=== PATIENT | male | born 1965 | race Caucasian/White ===

== ENCOUNTER → 2018-12-16 | Outpatient (CLI) | payer OTHER ==
[~2018-12-16] MED LIST: ATOR40TA75 PO; BENI1TAB3 PO; MELO15TA28 PO; MIRA0.254 PO; OMEP40CA2 PO; PROC60TA PO; SYNJ1TAB PO; TRES1INJ2 SC; VICT18IN SC; VITA200028 PO; ZOLO100T PO
[2018-12-16 12:00] LABS: HEMATOCRIT 46.3 % (42.0-52.0); HEMOGLOBIN 15.1 g/dl (13.5-17.5); MEAN CORPUSCULAR HEMOGLOBIN 30.1 pg (27.0-33.0); MEAN CORPUSCULAR HGB CONC 32.6 g/dl (32.0-36.5); MEAN CORPUSCULAR VOLUME 92.4 fl (80.0-96.0); PLATELET COUNT, AUTOMATED 295 10^3/uL (150-450); RED BLOOD COUNT 5.01 10^6/uL (4.30-6.10); WHITE BLOOD COUNT 13.9 10^3/uL (4.0-10.0)
[2018-12-16 12:08] LABS: INR 1.06; PROTHROMBIN TIME 13.5 SECONDS (11.8-14.0)
[2018-12-16 12:23] LABS: ALBUMIN 3.7 GM/DL (3.2-5.2); ALT/SGPT 48 U/L (12-78); BILIRUBIN,TOTAL 0.4 MG/DL (0.2-1.0); BLOOD UREA NITROGEN 23 MG/DL (7-18); CARBON DIOXIDE LEVEL 27 MEQ/L (21-32); CHLORIDE LEVEL 104 MEQ/L (98-107); CREATININE FOR GFR 0.81 MG/DL (0.70-1.30); GLOMERULAR FILTRATION RATE > 60.0 (>56); GLUCOSE, FASTING 220 MG/DL (70-100); POTASSIUM SERUM 4.2 MEQ/L (3.5-5.1); SODIUM LEVEL 138 MEQ/L (136-145); TOTAL PROTEIN 7.6 GM/DL (6.4-8.2)
[2018-12-16 12:26] LABS: ERYTHROCYTE SEDIMENTATION RATE 24 mm/hr (0-20)
--- NOTE | 2018-12-16 14:43 | REP ---
PA and lateral chest: Comparison is 10/18/2010. The lung yancey are clear. The cardiac size is normal. The nithya, mediastinum, and skeletal structures are unremarkable. There is internal fixation of the right shoulder, right ribs and cervical spine, all unchanged. Impression: Negative PA and lateral chest. There is no interval change. Electronically Signed by Jose Ramon Cherry MD 12/16/2018 02:34 P
--- NOTE | 2018-12-18 08:13 | ECGEPIP ---
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
== END ==
LOC: M LAB 10:53
PROVIDERS: ATTEND Orthopaedic Surgery
DX: M17.11 Unilateral primary osteoarthritis, right knee (principal)

== ENCOUNTER → 2019-01-06 | Outpatient (CLI) | payer OTHER ==
--- NOTE | 2018-12-31 11:10 | HPE ---
DATE OF ADMISSION: 01/06/2019 HISTORY OF PRESENT ILLNESS: This is a 53-year-old male with continuing right knee symptomatic osteoarthritis with history of work injury sustained on 08/24/2005. He consent for a right total knee arthroplasty per Dr. Gui Palacio. X-rays are consistent with advanced osteoarthritis. Medical optimization was completed by Dr. Abran Elizondo on 12/26/2018. ALLERGIES: None known to drugs. MEDICATIONS: List includes Bactroban 2%, Hibiclens 4% which he is going to use preop as instructed, Victoza 18 mg/3 mL, Benicar 20 mg, Tresiba FlexTouch 100 unit/mL, Synjardy 5/500 mg, Zoloft 100 mg, meloxicam 15 mg, atorvastatin calcium 40 mg, Procardia XL 60 mg, omeprazole 40 mg, Mirapex 0.75 mg, vitamin D 2000 units. MEDICAL PROBLEM LIST: Symptomatic right knee osteoarthritis, non-insulin dependent type 2 diabetes, essential hypertension, pure hypercholesterolemia. Medical problems include anxiety, depression and thyroid disease. SURGICAL HISTORY: C5-6 fusion, right knee arthroscopic surgery, shoulder arthroscopy - both. FAMILY HISTORY: Heart disease, diabetes, hypertension, thyroid disease, arthritis, cancer. SOCIAL HISTORY: Denies smoking. Rarely consumes alcohol. REVIEW OF SYSTEMS: Denies chest pain, shortness of breath, dyspnea on exertion, fever, chills, malaise, upper respiratory or urinary tract symptoms. EKG: Reviewed as read by Dr. Sol Coreas showing moderate ventricular conduction delay, sinus rhythm, through [facility]. Service date 12/16/2018. CHEST X-RAY: Service date 12/16/2018 via [facility] shows negative PA and lateral chest views, no interval change, as read by Dr. Cherry. LABORATORY FINDINGS: Glucose 220 (fasting), BUN nitrogen 23, anion gap 7, alkaline phosphatase 160, albumin globulin ratio 0.95, erythrocyte sedimentation rate 24. White blood count 13.9. PHYSICAL EXAMINATION: Vitals: Blood pressure 150/65, pulse 80, temperature 96.8, height 68.75 inches, weight 263 pounds 8 ounces, BMI 39.2, respirations 12. This a pleasant, well-developed, well-nourished, obese male in no acute distress, alert and oriented times three. Mood and affect are appropriate. He is ambulating slow and steady with favoring about the right lower extremity. No gross antalgia about the right. Right lower extremity is benign, noninfectious looking, not hot to touch. Positive medial joint line tenderness to palpation with crepitance about the knee through flexion and extension. Patellofemoral joint is congruent, static and dynamic. Negative popliteal fossa masses or pain. Bowel sounds times four, soft, nontender. Chest rises symmetrically. Regular rate and rhythm. Lungs: Clear to auscultation. Neck: Supple. Negative jugular venous distention (JVD) or bruits. Normocephalic. IMPRESSION: 1. Right knee symptomatic tricompartmental osteoarthritis. 2. The patient consented for a right total knee arthroplasty per Dr. Gui Palacio. 3. Medical optimization per Dr. Elizondo out of [facility]. 4. 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 5. Sequential compression device (SCD) and thromboembolic deterrent stockings (TEDS) in OR. MTDD
[~2019-01-06] VITALS: Ht 175.3 cm; Wt 120.5 kg
[~2019-01-06] MED LIST changes: +LIDOCAINE 1% MDV 20ML VIAL SQ PRN; +LR 1,000 ML IV ONE; -OMEP40CA2 PO; +OMEP40CA97 PO; +ceFAZolin SOD 1 GM in D5W MINI-BAG PLUS 50 ML IV ONE; +ceFAZolin SOD 2 GM in IV 1 EA IV ONE
--- NOTE | 2019-01-06 11:06 | HPE ---
DATE OF ADMISSION: 01/06/2019 This is a patient who arrives today for anticipated knee replacement. He, unfortunately, got his beta jonathan and antiinflammatory confused and had stopped his beta-jonathan several days ago but continued to take 15 of Mobic. This is a pretty unhealthy patient with a body mass index (BMI) of about 40 and diabetes. I was notified of this while I was in the operating room with a previous patient and elected that we would have to reschedule him. I think it is safer if he has been on his beta jonathan and off the antiinflammatory. I worry about increased bleeding risk and cardiac complications.
== END ==
LOC: M SDC 09:00 → M OR 09:03 → UNDOADMIN 09:03 → EDSTATUS 11:20
PROVIDERS: ATTEND Orthopaedic Surgery
DX: M17.11 Unilateral primary osteoarthritis, right knee (principal); Z53.8 Procedure and treatment not carried out for other reasons

== ENCOUNTER 2022-03-10 14:26 | Emergency (ER) | payer BC, MEDICARE ==
[~2022-03-10 14:26] MED LIST changes: -BENI1TAB3 PO; -LIDOCAINE 1% MDV 20ML VIAL SQ PRN; -LR 1,000 ML IV ONE; +OLME20TA55 PO; +OMEP40CA4 PO; -OMEP40CA97 PO; +PERC5TAB12 PO; +XARE10TA PO; -ceFAZolin SOD 1 GM in D5W MINI-BAG PLUS 50 ML IV ONE; -ceFAZolin SOD 2 GM in IV 1 EA IV ONE
[2022-03-10 16:03] LABS: CK-MB VALUE MASS 1.2 NG/ML (<3.6)
[2022-03-10 16:04] LABS: CPK CREATINE PHOSPHOKINASE 118 U/L (46-171); MB/CK RELATIVE INDEX 1.01 (< OR =4)
[2022-03-10 19:19] LABS: LIPASE 33 U/L (12-53)
[2022-03-10 19:21] LABS: ALBUMIN 3.4 G/DL (3.2-5.2); ALKALINE PHOSPHATASE 117 U/L (46-116); ALT/SGPT 35 U/L (7.0-40); AST/SGOT 24 U/L (<34); BILIRUBIN,DIRECT 0.2 MG/DL (<0.4); BILIRUBIN,TOTAL 0.5 MG/DL (0.3-1.2); BLOOD UREA NITROGEN 19 MG/DL (9-23); CALCIUM LEVEL 11.6 MG/DL (8.5-10.1); CARBON DIOXIDE LEVEL 29 MMOL/L (20-31); CHLORIDE LEVEL 99 MMOL/L (98-107); CREATININE FOR GFR 0.75 MG/DL (0.70-1.30); GLOMERULAR FILTRATION RATE > 60.0 (>56); GLUCOSE, FASTING 174 MG/DL (60-100); POTASSIUM SERUM 4.1 MMOL/L (3.5-5.1); SODIUM LEVEL 137 MMOL/L (136-145); TOTAL PROTEIN 7.1 G/DL (5.7-8.2)
[2022-03-10 19:24] LABS: THYROID STIMULATING HORMONE 1.134 uIU/ML (0.55-4.78)
[2022-03-10 19:52] LABS: BASO # 0.1 10^3/uL (0.0-0.2); BASO % 0.5 % (0.0-1.0); EOS # 0.2 10^3/uL (0.0-0.5); EOS % 1.8 % (0.0-3.0); HEMATOCRIT 44.4 % (42.0-52.0); HEMOGLOBIN 14.4 g/dl (13.5-17.5); LYMPH # 3.3 10^3/uL (1.5-5.0); LYMPH % 31.8 % (24.0-44.0); MEAN CORPUSCULAR HEMOGLOBIN 29.5 pg (27.0-33.0); MEAN CORPUSCULAR HGB CONC 32.4 g/dl (32.0-36.5); MONO # 0.7 10^3/uL (0.0-0.8); MONO % 7.2 % (2.0-8.0); NEUTROPHILS % 58.2 % (36.0-66.0); PLATELET COUNT, AUTOMATED 245 10^3/uL (150-450); RED BLOOD COUNT 4.88 10^6/uL (4.30-6.10); WHITE BLOOD COUNT 10.3 10^3/uL (4.0-10.0)
[2022-03-10 20:05] LABS: INR 0.91; PROTHROMBIN TIME 12.4 SECONDS (12.5-14.5)
[2022-03-10 20:15] LABS: CK-MB VALUE MASS < 1.0 NG/ML (<3.6)
[2022-03-10 20:22] LABS: CPK CREATINE PHOSPHOKINASE 97 U/L (46-171); MB/CK RELATIVE INDEX 1.03 (< OR =4)
[2022-03-10 20:24] LABS: RSV AMPLIFICATION NEGATIVE (NEGATIVE)
[2022-03-11] MEDS ORDERED: KETOROLAC 30 MG/ML 1ML VIAL IV ONE (01:00)
[2022-03-11] MEDS ORDERED: OLMESARTAN MEDOXOMIL 20 MG TAB (BENICAR) PO ONE (01:00)
[2022-03-11 01:26] VITALS: BP 136/78
[2022-03-11 03:29] VITALS: BP 171/82
== END 2022-03-11 03:46 | disposition home or self-care (01) ==
LOC: EDBD 14:26 → M ED 14:26
DX: I16.0 Hypertensive urgency (principal); R00.1 Bradycardia, unspecified; E11.9 Type 2 diabetes mellitus without complications; I10 Essential (primary) hypertension; E78.5 Hyperlipidemia, unspecified; F10.10 Alcohol abuse, uncomplicated; Z79.4 Long term (current) use of insulin; Z86.79 Personal history of other diseases of the circulatory system; Z79.52 Long term (current) use of systemic steroids; Z79.811 Long term (current) use of aromatase inhibitors; Z79.899 Other long term (current) drug therapy
CPT/HCPCS: 36415; 70450; 70496; 71046; 71260; 80048; 80076; 82550; 82553; 83690; 83880; 84443; 84484; 85025; 85610; 85730; 87631; 93005; 96374; 99285; J1885

== ENCOUNTER 2022-08-09 11:52 | Day surgery (SDC) | payer BC, MEDICARE ==
[~2022-08-09] VITALS: Ht 175.3 cm; Wt 117.4 kg
[~2022-08-09 11:52] MED LIST changes: +BSS IRRIG/VANCO(10MG)/TOBRA(5MG)/EPINEPH(1:1000-0.5CC)500ML BAG-ORONLY IR ONE; +CEFUROXIME 1MG/0.1ML INTRACAMERAL INJ As Ordered ONE; +CYCLOPENTOLATE 1% OPHTH SOLN 2ML BTL OS SCH; +GLIP10TA6 PO; +LIDOCAINE 1% SDV 5ML VIAL As Ordered ONE; +LIDOCAINE 3.5 % 1ML OPHTH TOPICAL GEL OU ONE; +MELO7.5T35 PO; +METO50TA7 PO; +OFLOXACIN 0.3 % (OCUFLOX) OPTH SOL 5ML OS ONE; +PHENYLEPHRINE 10% OPHTH SOL 5ML OS PRN; +PHENYLEPHRINE 2.5% OPHTH SOL 2ML OS SCH; +TROPICAMIDE 1% OPHTH SOLN 15ML OS SCH
[2022-08-09] MEDS ORDERED: MIDAZOLAM INJ 2MG/2ML VIAL As Ordered ONE (12:26)
[2022-08-09] MEDS ORDERED: fentaNYL 100 MCG/2 ML INJECTION As Ordered ONE (12:26)
[2022-08-09 14:40] VITALS: BP 157/75
== END 2022-08-09 14:45 | disposition home or self-care (01) ==
LOC: M SDC 11:52
PROVIDERS: ATTEND Ophthalmology
DX: H25.12 Age-related nuclear cataract, left eye (principal); I10 Essential (primary) hypertension; R07.9 Chest pain, unspecified; E78.5 Hyperlipidemia, unspecified; E11.9 Type 2 diabetes mellitus without complications; K21.9 Gastro-esophageal reflux disease without esophagitis; F41.9 Anxiety disorder, unspecified; F32.A Depression, unspecified; Z79.899 Other long term (current) drug therapy; Z79.84 Long term (current) use of oral hypoglycemic drugs; G47.33 Obstructive sleep apnea (adult) (pediatric)
CPT/HCPCS: 66984; J0697; J2250; J3010; V2632

== ENCOUNTER 2022-08-23 09:49 | Day surgery (SDC) | payer BC, MEDICARE ==
[~2022-08-23] VITALS: Ht 175.3 cm; Wt 117.5 kg
[~2022-08-23 09:49] MED LIST changes: +CYCLOPENTOLATE 1% OPHTH SOLN 2ML BTL OD SCH; -CYCLOPENTOLATE 1% OPHTH SOLN 2ML BTL OS SCH; +MIDAZOLAM INJ 2MG/2ML VIAL As Ordered ONE; +OFLOXACIN 0.3 % (OCUFLOX) OPTH SOL 5ML OD ONE; -OFLOXACIN 0.3 % (OCUFLOX) OPTH SOL 5ML OS ONE; +PHENYLEPHRINE 10% OPHTH SOL 5ML OD PRN; -PHENYLEPHRINE 10% OPHTH SOL 5ML OS PRN; +PHENYLEPHRINE 2.5% OPHTH SOL 2ML OD SCH; -PHENYLEPHRINE 2.5% OPHTH SOL 2ML OS SCH; +TROPICAMIDE 1% OPHTH SOLN 15ML OD SCH; -TROPICAMIDE 1% OPHTH SOLN 15ML OS SCH; +fentaNYL 100 MCG/2 ML INJECTION As Ordered ONE
[2022-08-23 13:41] VITALS: BP 145/78; TEMP 97.4; O2SAT 97
== END 2022-08-23 13:59 | disposition home or self-care (01) ==
LOC: M SDC 09:49
PROVIDERS: ATTEND Ophthalmology
DX: H25.11 Age-related nuclear cataract, right eye (principal); R07.9 Chest pain, unspecified; I10 Essential (primary) hypertension; E11.9 Type 2 diabetes mellitus without complications; E78.5 Hyperlipidemia, unspecified; K21.9 Gastro-esophageal reflux disease without esophagitis; F41.9 Anxiety disorder, unspecified; F32.A Depression, unspecified; G47.33 Obstructive sleep apnea (adult) (pediatric); Z79.899 Other long term (current) drug therapy; Z79.84 Long term (current) use of oral hypoglycemic drugs
CPT/HCPCS: 66984; J0697; J2250; J3010; V2632